=== PATIENT | male | born 1965 | race Caucasian/White ===

== ENCOUNTER 2017-01-22 22:51 | Emergency (ER) | payer OTHER ==
[~2017-01-22] VITALS: Ht 177.8 cm; Wt 88.0 kg
[2017-01-22 23:04] VITALS: BP 111/67; PULSE 96; RESP 20; TEMP 98.6; O2SAT 96
--- NOTE | 2017-01-22 23:12 | PD ---
HPI Chief Complaint: Alcohol/Drug Intoxication Time Seen by Provider: 23:09 Travel History International Travel<30 days: No Contact w/Intl Traveler<30days: No Traveled to known affect area: No History of Present Illness HPI POLICE BROUGHT PATIENT UNDER April ACT DUE TO PUBLIC INTOXICATION. PATIENT ADMITS TO DRINKING LIQUOR. DENIES LOC HOWEVER, DIFFICULT TO ESTABLISH DUE TO INTOXICATION. PFS Social History Alcohol Use: Yes Tobacco Use: Yes Allergies-Medications (Allergen,Severity, Reaction): Coded Allergies: No Known Allergies (Unverified , 01/22/17) Reported Meds & Prescriptions Reported Meds & Active Scripts Active No Active Prescriptions or Reported Medications Review of Systems ROS Limitations: Intoxication Except as stated in HPI: all other systems reviewed are Neg Physical Exam Exam Limitations: Intoxication Narrative GENERAL: SKIN: Warm and dry. HEAD: Atraumatic. Normocephalic. EYES: Pupils equal and round. No scleral icterus. No injection or drainage. ENT: No nasal bleeding or discharge. Mucous membranes pink and moist. NECK: Trachea midline. No JVD. CARDIOVASCULAR: Regular rate and rhythm. RESPIRATORY: No accessory muscle use. Clear to auscultation. Breath sounds equal bilaterally. GASTROINTESTINAL: Abdomen soft, non-tender, nondistended. MUSCULOSKELETAL: Extremities without clubbing, cyanosis, or edema. No obvious deformities. NEUROLOGICAL: Awake and alert. No obvious cranial nerve deficits. Motor grossly within normal limits. Five out of 5 muscle strength in the arms and legs. Normal speech. PSYCHIATRIC: Appropriate mood and affect; insight and judgment normal. Data Data Last Documented VS Orders Orders Ct Brain W/O Iv Contrast(Rout) (01/22/17 23:12) Blood Glucose (01/22/17 23:12) Ed Discharge Order (01/23/17 06:02) [facility] Medical Decision Making Medical Screen Exam Complete: Yes Emergency Medical Condition: Yes Medical Record Reviewed: Yes Differential Diagnosis INTOXICATION V HYPOGLYCEMIA V ICH Narrative Course ON EVALUATION , PATIENT HAS NO E/O TRAUMA, ACCUCHECK WNL, AND CT HEAD NEG FOR ICH/SKULL FX. PATIENT IS MEDICALLY CLEARED AND AWAITING CLINICAL SOBRIETY Diagnosis Primary Impression: INTOXICATION Patient Instructions: Alcohol Intoxication (ED), General Instructions Scripts No Active Prescriptions or Reported Meds Disposition: 01 DISCHARGE HOME Condition: Stable Franc Fisher MD Jan 22, 2017 23:12
[2017-01-22 23:16] VITALS: BP 115/76; PULSE 88; RESP 20; TEMP 98; O2SAT 98
--- NOTE | 2017-01-23 00:07 | RADRPT ---
EXAM DATE/TIME: 01/22/2017 23:30 [facility] COMPARISON: No previous studies available for comparison. INDICATIONS : Altered mental status; ETOH. RADIATION DOSE: 56.35 CTDIvol (mGy) MEDICAL HISTORY : Non-responsive. SURGICAL HISTORY : Non-responsive. ENCOUNTER: Initial ACUITY: 1 day PAIN SCALE: Non-responsive LOCATION: cranial TECHNIQUE: Multiple contiguous axial images were obtained of the head. Using automated exposure control and adj ustment of the mA and/or kV according to patient size, radiation dose was kept as low as reasonably a chievable to obtain optimal diagnostic quality images. DICOM format image data is available electro nically for review and comparison. FINDINGS: CEREBRUM: The ventricles are normal for age. No evidence of midline shift, mass lesion, hemorrhage or acute in farction. No extra-axial fluid collections are seen. POSTERIOR FOSSA: The cerebellum and brainstem are intact. The 4th ventricle is midline. The cerebellopontine angle i s unremarkable. EXTRACRANIAL: Partial opacification of the left mastoid air cells. Bilateral nasal bone fracture, may be chronic. 1 .4 cm nodule is seen within the left parotid gland. SKULL: The calvaria is intact. No evidence of skull fracture. CONCLUSION: 1. No acute intracranial findings. 2. 1.4 cm nodule in the left parotid gland. It may represent a lymph node. Faheem Bolton MD on January 23, 2017 at 0:01 Board Certified Radiologist. This report was verified electronically.
== END 2017-01-23 06:15 | disposition home or self-care (01) ==
LOC: NEPD 22:51 → EDBD 22:51 → NEPD 01-23 06:15
DX: F10.129 Alcohol abuse with intoxication, unspecified (principal); Z72.0 Tobacco use
CPT/HCPCS: 70450; 99284